=== PATIENT | female | born 1985 | race African-American/Black ===

== ENCOUNTER 2024-01-30 18:33 | Emergency (ER) | payer OTHER, SELFPAY ==
[2024-01-30 18:49] VITALS: BP 104/49; PULSE 84; RESP 18; TEMP 36.7; O2SAT 100
[2024-01-30 19:00] VITALS: BP 129/60; PULSE 84
[2024-01-30 19:02] VITALS: BP 97/75; PULSE 79
--- NOTE | 2024-01-30 19:02 | ED.GENADULT ---
HPI - General Adult General Chief complaint: Nausea/Vomiting/Diarrhea Stated complaint: diarrhea/nausea/congestion Time Seen by Provider: 01/30/24 19:00 Source: patient, RN notes reviewed and old records reviewed Mode of arrival: ambulatory Limitations: no limitations History of Present Illness HPI narrative: 38 year old female who presents to [facility] care accompanied by significant other with complaints of 3 day history of nausea, vomiting and some diarrhea. Patient reports that she has been having about 5 episodes daily. She also reports that she has had head congestion body and back ache and also headache, has felt dizzy today. Patient reports that she has been voiding as usual and has been drinking fluids. Patient reports concern if dizziness could be from Prazosin that she took last night for night green, uses this on occasion.Patient reports that she has taken Ibuprofen and Tylenol for her discomfort, denies any abdominal pain MD complaint: nausea vomiting and diarrhea, dizziness Onset (ago): day(s) (3) Severity scale (1-10): 4 Quality: aching Treatments prior to arrival: NSAID and other (Tylenol) Related Data Home Medications Medication Instructions Recorded Confirmed albuterol sulfate 90 mcg/actuation inhalation 01/30/24 aerosol inhaler bupropion HCl 150 mg 24 hr tablet, 150 mg PO DAILY 01/30/24 01/30/24 extended release hydroxyzine HCl 50 mg tablet 50 mg PO TID Anxiety 01/30/24 01/30/24 metoprolol succinate 50 mg 50 mg PO 01/30/24 tablet,extended release 24 hr prazosin 2 mg capsule 2 mg PO BID PRN Anxiety 01/30/24 01/30/24 Allergies Allergy/AdvReac Type Severity Reaction Status Date / Time No Known Allergies Allergy Unverified 01/04/19 14:51 Review of Systems Review of Systems: CONSTITUTIONAL: Denies fever, chills, or sweats. EYES: Denies visual changes, redness, or discharge. ENT: report rhinorrhea,head congestion,no sore throat, or otalgia. CARDIOVASCULAR: Denies chest pain, palpitations, or edema. RESPIRATORY: Denies cough or dyspnea. GASTROINTESTINAL: Denies abdominal pain,positive for nausea, vomiting, or diarrhea. GENITOURINARY: Denies dysuria or hematuria. SKIN: Denies rash or itching. MUSCULOSKELETAL: Reports back pain, generalized body aches, or myalgia. NEUROLOGIC: Reports headache, no numbness, or weakness.states some dizziness. PSYCHIATRIC:Reports history of anxiety or depression. All systems reviewed & are unremarkable except as noted in HPI and below PMFSH Past Medical History Medical History (Updated 02/01/24 @ 15:38 by Audelia Osullivan NP) Anxiety and depression Asthma Hypertension Nightmares Surgical History Surgical History (Updated 02/01/24 @ 15:33 by Audelia Osullivan NP) Previous section x4 Social History Social History (Updated 02/01/24 @ 15:38 by Audelia Osullivan NP) Smoking packs per day: 0.5 Smoking cigarettes per day: 10.0 Years smoked: 20 Smoking pack-years: 10.00 Smoking status: Former smoker Tobacco type: cigarettes Additional smoking assessment comments: quit 8 months ago Alcohol intake: current Alcohol use details: rare social Substance use type: does not use Living arrangements: with family Gender identity (if verbalized by the patient): Female Comments At time of signature, agree with nursing past medical, surgical, social and family history. There is no relevant family history pertinent to the presenting complaint Exam Narrative: GENERAL: Well-appearing, well-nourished, and in no acute distress. HEAD: Normocephalic, atraumatic. EYES: PERRLA and EOMI. ENT: Nares clear, no rhinorrhea or epistaxis. Mucous membranes moist.TM's normal, throat pink with no swelling NECK: Supple. no lymphadenopathy CHEST: Clear to auscultation. No respiratory distress. HEART: Regular rate and rhythm. No murmur heard. Normal peripheral pulses. ABDOMEN: Soft, nontender, nondistended, normal active bowel sounds episodes of
[2024-01-30 19:04] VITALS: BP 127/73; PULSE 80
== END 2024-01-30 19:45 | disposition home or self-care (01) ==
PROVIDERS: Emergency Provider Registered Nurse
DX: K52.9 Noninfective gastroenteritis and colitis, unspecified (principal); R42 Dizziness and giddiness; E86.0 Dehydration; Z20.822 Contact with and (suspected) exposure to COVID-19; Z87.891 Personal history of nicotine dependence; J45.909 Unspecified asthma, uncomplicated; I10 Essential (primary) hypertension; F41.9 Anxiety disorder, unspecified; F32.A Depression, unspecified
CPT/HCPCS: 87426; 99203; G0463

== ENCOUNTER 2024-07-28 17:13 | Emergency (ER) | payer OTHER, SELFPAY ==
--- OUTSIDE RECORDS SUMMARY | 2024-07-28 17:17 | XMS_ITS | Encounter Summary ---
Author Organization [facility] Address [address] [place] [address] Phone Care Team Providers Care [employer] Draftsman Name Role Phone Mackenzie Reyna PAC Unavailable [phone] Cosmo Jimenez PAC Primary Care Provider [phone] Reason for Visit * Reason Comments Medication Refill Encounter Details Date Type Department Care Team (Late st Contact Info) Description 11/12/2023 Refill [facility] - [facility] - [place] [address] [place] [address] Cosmo Jimenez PAC [address] [place] [address] Medication Refill Social History Tobacco Use Types Packs/Day Years Used Date Smoking Tobacco: Every Day Cigarettes 0.5 23.9 Started: 09/10/2000 Smokeless Tobacco: Never Alcohol Use Standard Drinks/Week Comments Yes 1 (1 standard drink = 0.6 oz pur e alcohol) socially [facility] Utilities Answer Date Recorded In the past 12 months has [employer] electric, gas, oil, or water company threatened to shut off services in your home? Patient declined 08/16/2023 Social Connection and Isolation Panel [NHANES] A nswer Date Recorded In a typical week, how many times do you talk on the phone with family, friends, or neighbors? Patient declined 08/16/2023 How often do you get togethe r with friends or relatives? Patient declined 08/16/2023 How often do you attend pentecostal or religion serv ices? Patient declined 08/16/2023 Active Member of Clubs or Organizations Not on f ile 08/16/2023 How often do you attend meet ings of the clubs or organizations you belong to? Patient declined 08/16/2023 Are you , , di vorced, , never , or living with a partner? Patient declined 08/16/2023 AUDIT-C Answer Date Recorded Q1: How often do you have a drink containing alc ohol? 2-4 times a month 08/16/2023 Q2: How many drinks containi ng alcohol do you have on a typical day when you are drinking? 1 or 2 08/16/2023 Q3: How often do you have si x or more drinks on one occasion? Never 08/16/2023 Overall Financial Resource Strain (CARDIA) Answe r Date Recorded How hard is it for you to pa y for the very basics like food, housing, medical care, and heating? Somewhat hard 08/16/2023 PHQ-2 Answer Date Recorded Total Score - Questions 1-9 2 08/17 [facility] - Occupational Stress Questionnaire Answer Date Recorded Do you feel stress - tense, restless, nervous, or anxious, or unable to sleep at night because your mind is troubled all the time - these days? Patient declined 08/16/2023 Exercise Vital Sign Answer Date Recorde d On average, how many days pe r week do you engage in moderate to strenuous exercise (like a brisk walk)? 2 days 08/16/2023 On average, how many minutes do you engage in exercise at this level? 20 min 08/16/2023 Hunger Vital Sign Answer Date Recorded Within the past 12 months, y ou worried that your food would run out before you got the money to buy more. Patient declined Within the past 12 months, t he food you bought just didn't last and you didn't have money to get more. Patient declined PRAPARE - Transportation Answer Date Re corded In the past 12 months, has l ack of transportation kept you from medical appointments or from getting medications? Patient declined 08/16/2023 In the past 12 months, has l ack of transportation kept you from meetings, work, or from getting things needed for daily living? Patient declined 08/16/2023 Housing Stability Vital Sign Answer William e Recorded In the last 12 months, was t here a time when you were not able to pay the mortgage or rent on time? Patient declined 08/16/19 24 In the last 12 months, how many places have you lived? 1 08/16/2023 In the last 12 months, was t here a time when you did not have a steady place to sleep or slept in a jail (including now)? No 08/16/2023 Comments No Sex and Gender Information Value Date Recorded Sex Assigned at Not on file Legal Sex Female 9:55 PM CDT Gender Identity Not on file Sexual Orientation Not on file documented as of this encounter Miscellaneous Notes * Telephone Encounter - Cosmo Jimenez PAC - 11/13/2023 7:41 PM CDT Refill approved. * Telephone Encounter - Marco Ta RN - 11/13/2023 9:47 AM CDT Medication failed the protocol, provider to review and approve the medication order if appropriate. Requested Prescriptions Pending Prescriptions Disp Refills buPROPion (WELLBUTRIN) 150 MG XL tablet [Pharmacy Med Name: BUPROPION HCL XL 150 MG TABLET] 90 Tablet 0 Sig: TAKE 1 TABLET BY MOUTH EVERY DAY IN THE MORNING Bupropion (6 Month Refill Only) Protocol Failed - 11/12/2023 1:01 AM Failed - Has an encounter in the past 6 months with a depression or anxiety visit diagnosis Failed - Patient has established therapy with Bupropion for at least 6 months Passed - No test in the past 12 months or most recent test was negative Passed - No active on record Passed - Visit with relevant provider in past 6 months or upcoming 90 days Recent Visits Date Type Provider Dept 08/16/23 Office Visit Cosmo Jimenez PAC [facility] Showing recent visits within past 182 days and meeting all other requirements Future Appointments No visits were found meeting these conditions. Showing future appointments within next 90 days and meeting all other requirements documented in this encounter Plan of Treatment Upcoming Encounters Date Type Department Care Team (Late st Contact Info) Description 08/08/2024 8:10 AM HUMANITIES TEACHER Lab [facility] - [place] [address] [place] [id number] [facility] 08/15/2024 10:30 AM HUMANITIES TEACHER Office Visit [facility] [place] [address] [place] [address] Cosmo Jimenez PAC [address] [place] [address] documented as of this encounter Visit Diagnoses Not on filedocumented in this encounter Additional Health Concerns Infection Onset Date Last Indicated Resolved Time COVID - 19 05/22/2024 05/22/2024 05/22/2024 3:34 PM HUMANITIES TEACHER Assessment Noted Time PHQ-9 Depression Total Score: 2 09/11/19 21 11:00 AM CDT documented as of this encounter Care Teams [employer]sman Relationship Specialty Start Date End Date Cosmo Jimenez PAC [address] [facility] [place] [place] [id number] PCP - General Physician Volunteer Firefighter 04/04/23 Mackenzie Reyna PAC [address] [place] [address] Physician Volunteer Firefighter Physician Volunteer Firefighter 09/08/20 documented as of this encounter
--- OUTSIDE RECORDS SUMMARY | 2024-07-28 17:17 | XMS_ITS | CONTINUITY OF CARE DOCUMENT ---
Author Name beto pérez Address Unknown Organization [facility] Address [address] [place] [address] [address] [place] [address] Phone [phone] Care Team Providers Care Laboratory Chief Name Role Phone beto pérez Unavailable Unavailable INSURANCE PROVIDERS Payer name Policy type / Coverage type [employer] Medicaid 1 [id number]
--- OUTSIDE RECORDS SUMMARY | 2024-07-28 17:17 | XMS_ITS | Clinical Summary ---
Author Organization [facility] Address [address] [place] [address] Phone Care Team Providers Care Geology Technician Name Role Phone Mackenzie Reyna PAC Unavailable [phone] Cosmo Jimenez PAC Primary Care Provider [phone] Allergies Active Allergy Reactions Criticality Noted Date Comments Oxycodone-Acetaminophen Itching,Swelling 2020 Medications Blood Pressure Kit 1 Units by Does not apply route daily. 1 Each 05/19/20 22 Active fish oil-omega-3 fatty acids 1000 MG Capsule Take 1,000 mg by mouth daily. Active hydrOXYzine (ATARAX) 50 MG Tablet TAKE 1 TABLET BY MOUTH THREE TIMES A DAY NEEDED FOR ANXIETY OR SLEEP 90 Tablet 1 04/25/20 23 Active Additional Information Patient not taking.Reported on 07/28/2024 Phentermine HCl 37.5 MG TabletIndications :Obesity, Class III, BMI 40-49.9 (morbid obesity) ([facility]) Take 1 Tablet by mouth every morning (before breakfast). 30 Tablet 07/03/19 24 Active Additional Information Patient not taking.Reported on 07/28/2024 Cholecalciferol (Vitamin D3) 1.25 MG (31394 UT) TabletIndications :Vitamin D deficiency Take 1 Tablet by mouth once a week. 12 Tablet 08/17/19 24 Active Additional Information Patient not taking.Reported on 07/28/2024 buPROPion (WELLBUTRIN) 150 MG XL tablet TAKE 1 TABLET BY MOUTH EVERY DAY IN THE MORNING 90 Tablet 05/28/20 24 Active Additional Information Patient not taking.Reported on 07/28/2024 metoprolol Succinate (TOPROL-XL) 50 MG TABLET SR 24 HRIndications:Ess ential hypertension Take 1 Tablet by mouth daily. 90 Tablet 1 04/02/20 Active albuterol 108 (90 Base) MCG/ACT Aerosol SolutionIndicatio ns:Wheezing TAKE 2 PUFFS BY INHALATION EVERY 4 HOURS NEEDED FOR WHEEZING OR COUGH. 18 g 1 04/14/20 Active traMADol (ULTRAM) 50 MG TabletIndications :Cervical radiculopathy Take 1-2 Tablets by mouth every 6 hours as needed for Moderate or more severe pain. 20 Tablet 05/22/20 Active Additional Information Patient not taking.Reported on 07/28/2024 naloxone HCl (Narcan) 4 MG/0.1ML Liquid 1 Castaner by Nasal route as needed for Opioid Reversal. Administer in one nostril for symptoms of overdose (severe sleepiness, breathing problems, not responsive). Call 911. May repeat 1 spray in alternate nostril in 2-3 minutes if needed. 2 Each 06/05/20 Active Additional Information Patient not taking.Reported on 07/28/2024 cyclobenzaprine (FLEXERIL) 5 MG TabletIndications :Cervical radiculopathy Take 1 Tablet by mouth 3 times daily as needed for Muscle spasms for up to 14 days. 42 Tablet 06/27/19 25 025 Active Problems Problem Noted Date Diagnosed Date Intentional drug overdose 04/13/2023 ETOH abuse 04/13/2023 Cocaine abuse 04/13/2023 Tobacco abuse 04/13/2023 Anxiety 04/13/2023 Depression 04/13/2023 Schizophrenia 04/13/2023 Bipolar 1 disorder 04/13/2023 Hypertension 04/13/2023 Colitis 04/13/2023 Encounters Date Type Department Care Team Description 07/28/2024 Nurse Triage [facility] [address] [place] [address] Cosmo Jimenez, PAC Cough; Shortness of Breath 07/02/2024 Telephone [facility] at [facility] [address], [address] [place] [address] John Barnhart, Z OS MAINFRAME SYSTEMS PROGRAMMER No Show (2nd no show) 06/30/2024 Telephone [facility] [address] [place] [address] John Barnhart, Z OS MAINFRAME SYSTEMS PROGRAMMER 06/27/2024 2:00 PM DIGITAL MARKETING CONSULTANT Physical Therapy [facility]hab at [facility] [address], [address] [place] [address] Mackenzie Lilly APRN, MAIN ENTREE COOK AND CASHIER Marilyn Tabor, PT Abnormal posture (Primary Dx); Cervical radiculopathy; Weakness; Acute pain of right shoulder Discharge Disposition: Discharged to home or Selfcare 06/27/2024 Nurse Triage [facility] [address] [address] [place] [address] Cosmo Jimenez, PAC Back Pain 06/27/2024 Plan of Care Documentation [facility] [address] [facility], [address] [place] [address] 06/27/2024 Travel 06/15/2024 Results Follow-Up [facility] [place] [address] [place] [address] Cosmo Jimenez, PAC 06/13/2024 3:20 PM DIGITAL MARKETING CONSULTANT Lab [facility] [place] [address] Obesity, Class III, BMI 40-49.9 (morbid obesity) ([facility]) Discharge Disposition: Discharged to home or Selfcare 06/13/2024 Travel 06/05/2024 4:00 PM DIGITAL MARKETING CONSULTANT Office Visit [facility] [address] [place] [address] Mackenzie Lilly, RECYCLING MANAGER, MAIN E[employer]REE [employer]OOK [employer] CASHIER Cervical radiculopathy (Primary Dx) Discharge Disposition: Discharged to home or Selfcare 06/05/2024 Travel 05/22/2024 2:47 PM DIGITAL MARKETING CONSULTANT - 05/22/2024 4:43 PM DIGITAL MARKETING CONSULTANT Emergency [facility] Emergency [address] [place] [address] Jesus Meier MD Cervical radiculopathy Discharge Disposition: Discharged to home or Selfcare 05/22/2024 Travel from Last 3 Months Immunizations Immunization Administration Dates Next Due Influenza Vaccine, Quadrivalent, PF 04/04/2023,1 Family History Medical History Relation Name Comments Heart Attack Father Hypertension Father Osteoarthritis Father Rheumatoid Arthritis Father Thyroid Disease Father Asthma Mother Congestive Heart Failure Mother Diabetes Mother Heart Attack Mother High Cholesterol Mother Hypertension Mother Cancer Sister Hodkins Relation Name Status Comments Father Mother Sister Social History Tobacco Use Types Packs/Day Years Used Date Smoking Tobacco: Former Cigarettes 0.5 23.9 S tarted: 09/10/2000 Smokeless Tobacco: Never Alcohol Use Standard Drinks/Week Comments Yes 1 (1 standard drink = 0.6 oz pur e alcohol) True Styleities Answer Date Recorded In the past 12 months has [employer], gas, oil, or water [employer] threatened to shut off services in your home? Patient declined 08/16/2023 Social Connection and Isolation Panel [NHANES] A nswer Date Recorded In a typical week, how many times do you talk on the phone with family, friends, or neighbors? Patient declined 08/16/2023 How often do you get togethe r with friends or relatives? Patient declined 08/16/2023 How often do you attend roman catholic or baptist serv ices? Patient declined 08/16/2023 Active Member [...] Total Score - Questions 1-9 2 08/17 [facility] Occupational Stress Questionnaire Answer [...] place to sleep or slept in a senior care (including now)? No 08/16/2023 Comments No Sex and Gender Information Value Date Recorded Sex Assigned at Not on file Legal Sex Female 9:55 PM CDT Gender Identity Not on file Sexual Orientation Not on file Last Filed Vital Signs Vital Sign Reading Time Taken Comments Blood Pressure 130/80 06/05/2024 4:01 PM DIGITAL MARKETING CONSULTANT Pulse 97 06/05/2024 4:01 PM DIGITAL MARKETING CONSULTANT Temperature 37 C (98.6 F) 06/05/2024 4:01 PM DIGITAL MARKETING CONSULTANT Respiratory Rate 16 06/05/2024 4:01 PM DIGITAL MARKETING CONSULTANT Oxygen Saturation 100% 06/05/2024 4:01 PM DIGITAL MARKETING CONSULTANT Inhaled Oxygen Concentration - - Weight 111.6 kg (246 lb) 06/05/2024 4:01 PM DIGITAL MARKETING CONSULTANT Height 149.9 cm (4' 11 ) 06/05/2024 4:01 PM DIGITAL MARKETING CONSULTANT Body Mass Index 49.69 06/05/2024 4:01 PM DIGITAL MARKETING CONSULTANT Plan of Treatment Upcoming Encounters Date Type Department Care Team (Late st Contact Info) Description 08/08/2024 8:10 AM DIGITAL MARKETING CONSULTANT Lab [facility] [address] [place] [address] [facility] 08/15/2024 10:30 AM DIGITAL MARKETING CONSULTANT Office Visit [facility] [place] [address] [place] [address] Cosmo Jimenez PAC [address] [place] [address] Health Maintenance Due Date Last Done Comments Hepatitis C Virus (HCV) Screening 1986 TdaP Immunization 1986 Hepatitis B Immunization (1 of 3 - 19+ 3-dose series) 2005 Pneumococcal Immunization Combined (1 of 2 - PCV) 2005 HPV/Cotest 2016 Influenza Immunization (#1) 02/17/202403/18, 04/05/2022 Cervical Cancer Screening (CCS) 05/17/2025 Pap Smear 05/17/2025 05/17/2022 Respiratory Syncytial Virus (RSV) Immunization (Adult) (1 - 1-dose 75+ series) 2061 SARS-COV-2 Immunization Completed 02/21/2024 Meningococcal Immunization (ACWY) Aged Out No longer eligible b ased on patient's age to complete this topic Rotavirus Immunization Aged Out No lo nger eligible based on patient's age to complete this topic Procedures Procedure Name Priority Date/Time Associated Diagnosis Comments HEMOGLOBIN A1C W/ ESTIMATED GLUCOSE Routine 06/13/2024 3:28 PM DIGITAL MARKETING CONSULTANT Obesity, Class III, BMI 40-49.9 (morbid obesity) (HCC) XR CERVICAL SPINE LIMITED 2 OR 3 VIEWS (3V OR LESS) STAT 05/22/2024 3:27 PM DIGITAL MARKETING CONSULTANT XR CHEST 2 VIEWS STAT 05/22/2024 3:23 PM DIGITAL MARKETING CONSULTANT RSV,SARS-COV-2,INFL UENZA A&B BY PCR STAT 05/22/2024 2:21 PM DIGITAL MARKETING CONSULTANT EKG 12 LEAD STAT 05/22/2024 2:17 PM DIGITAL MARKETING CONSULTANT EKG SCAN 05/22/2024 12:00 AM DIGITAL MARKETING CONSULTANT PATHOLOGY CYTOLOGY RX SPECIALIST Routine 05/17/2022 11:21 AM DIGITAL MARKETING CONSULTANT Well woman exam with routine gynecological exam from Last 3 Months or Most Recently Relevant to Health Maintenance Results * HEMOGLOBIN A1C W/ ESTIMATED GLUCOSE (06/13/2024 3:28 PM DIGITAL MARKETING CONSULTANT) HGB-A1C 5.5 4.0 - 6.0 % 06/13/2024 5:49 PM DIGITAL MARKETING CONSULTANT [facility] Est Average Glucose 111.2 mg/dL 06/13/2024 5:49 PM DIGITAL MARKETING CONSULTANT [facility] Blood Venipuncture / Unknown 06/13/2024 3:28 PM DIGITAL MARKETING CONSULTANT 06/13/2024 3:28 PM DIGITAL MARKETING CONSULTANT Narrative [facility] - 06/13/2024 5:49 PM DIGITAL MARKETING CONSULTANT HEMOGLOBIN A1C: DIABETIC PATIENTS: WELL-CONTROLLED: 6.2 - 7.0 INTERMEDIATE WELL-CONTROLLED: 7.0 - 9.0 POORLY-CONTROLLED: >9.0 us Cosmo Jimenez PAC CHEMISTRY ORDERABLES Final R esult [facility] [address] [place] [address] * XR CERVICAL SPINE LIMITED 2 OR 3 VIEWS (3V OR LESS) (05/22/2024 3:27 PM DIGITAL MARKETING CONSULTANT) Anatomical Region Laterality Modality Spine, C-spine N/A Digital Radiogra phy 05/22/2024 4:23 PM DIGITAL MARKETING CONSULTANT Impressions 05/22/2024 4:26 PM DIGITAL MARKETING CONSULTANT IMPRESSION: 1. No acute findings of the cervical spine. 2. Moderate degenerative disc disease at C5-C6. Narrative 05/22/2024 4:26 PM DIGITAL MARKETING CONSULTANT EXAM DESCRIPTION: XR CERVICAL SPINE LIMITED 2 OR 3 VIEWS (3V OR LESS) REASON FOR STUDY: Pt c/o RT neck pain that radiates down RT arm x 5 days. no injury or hx of surgery. hx of HTN TECHNIQUE: 4 radiographic view(s) of the cervical spine. COMPARISON: None FINDINGS: ALIGNMENT: Anatomic. VERTEBRAE: Vertebral bodies of normal height. DISCS: Moderate disc height loss at C5-C6. SOFT TISSUES: Within normal limits. THIS IS AN ELECTRONICALLY VERIFIED FINAL REPORT 05/22/2024 4:23 PM - Electronically signed by Michael Coe M.D. KR: LUCIO Report ID: [id number] Reading Location: [place] [address] Procedure Note Michael Coe MD - 05/22/2024 EXAM DESCRIPTION: XR CERVICAL SPINE LIMITED 2 OR 3 VIEWS (3V OR LESS) REASON FOR STUDY: Pt c/o RT neck pain that radiates down RT arm x 5 days. no injury or hx of surgery. hx of HTN TECHNIQUE: 4 radiographic view(s) of the cervical spine. COMPARISON: None FINDINGS: ALIGNMENT: Anatomic. VERTEBRAE: Vertebral bodies of normal height. DISCS: Moderate disc height loss at C5-C6. SOFT TISSUES: Within normal limits. THIS IS AN ELECTRONICALLY VERIFIED FINAL REPORT 05/22/2024 4:23 PM - Electronically signed by Michael Coe M.D. KR: LUCIO Report ID: [id number] Reading Location: [id number] IMPRESSION: 1. No acute findings of the cervical spine. 2. Moderate degenerative disc disease at C5-C6. Jesus Meier MD IMG DIAGNOSTIC ORDERABLES Final Result * XR CHEST 2 VIEWS (05/22/2024 3:23 PM DIGITAL MARKETING CONSULTANT) Anatomical Region Laterality Modality Chest N/A Digital Radiogra phy 05/22/2024 4:22 PM DIGITAL MARKETING CONSULTANT Impressions 05/22/2024 4:24 PM DIGITAL MARKETING CONSULTANT IMPRESSION: No acute cardiopulmonary abnormality. Narrative 05/22/2024 4:24 PM DIGITAL MARKETING CONSULTANT EXAM DESCRIPTION: XR CHEST 2 VIEWS REASON FOR STUDY: Pt c/o RT neck pain that radiates down RT arm x 5 days. pt also reports cough x 2 day and small amount blood this morning. no injury or hx of surgery. hx of HTN TECHNIQUE: 2 radiographic view(s) of the chest. COMPARISON: 04/09/2023 FINDINGS: LUNGS: No focal opacity, pleural effusion, or pneumothorax. HEART/MEDIASTINUM: Cardiac silhouette normal in size. Mediastinal and hilar contours appear normal. LINES/TUBES: None. BONES: No acute osseous abnormality. THIS IS AN ELECTRONICALLY VERIFIED FINAL REPORT 05/22/2024 4:22 PM - Electronically signed by Michael Coe M.D. KR: LUCIO Report ID: [id number] Reading Location: [id number] Procedure Note Michael Coe MD - 05/22/2024 EXAM DESCRIPTION: XR CHEST 2 VIEWS REASON FOR STUDY: Pt c/o RT neck pain that radiates down RT arm x 5 days. pt also reports cough x 2 day and small amount blood this morning. no injury or hx of surgery. hx of HTN TECHNIQUE: 2 radiographic view(s) of the chest. COMPARISON: 04/09/2023 FINDINGS: LUNGS: No focal opacity, pleural effusion, or pneumothorax. HEART/MEDIASTINUM: Cardiac silhouette normal in size. Mediastinal and hilar contours appear normal. LINES/TUBES: None. BONES: No acute osseous abnormality. THIS IS AN ELECTRONICALLY VERIFIED FINAL REPORT 05/22/2024 4:22 PM - Electronically signed by Michael Coe M.D. KR: KR Report ID: [id number] Reading Location: [id number] IMPRESSION: No acute cardiopulmonary abnormality. us Jesus Meier MD IMG DIAGNOSTIC ORDERABLES Final Result * RSV,SARS-COV-2,INFLUENZA A&B BY PCR (05/22/2024 2:21 PM DIGITAL MARKETING CONSULTANT) FLU A Negative Negative, Error 05/22/2024 3:34 PM DIGITAL MARKETING CONSULTANT [facility] FLU B Negative Negative 05/22/2024 3:34 PM DIGITAL MARKETING CONSULTANT [facility] RESP SYNC VIRUS Negative Negative 3:34 PM DIGITAL MARKETING CONSULTANT [facility] SARSCOV2 NOT DETECTED (Reference Range for this test is Not Detected) 05/22/2024 3:34 PM DIGITAL MARKETING CONSULTANT [facility] Comment:This test was perfor med by a Reverse Privacy Director PCR Method. Swab NASOPHARYNGEAL SWAB / Unknown Non-Phlebotomy Collection / Unknown 05/22/2024 2:21 PM DIGITAL MARKETING CONSULTANT 05/22/2024 2:55 PM DIGITAL MARKETING CONSULTANT Narrative [facility] - 05/22/2024 3:34 PM DIGITAL MARKETING CONSULTANT This test has not been FDA cleared or approved; the test has been authorized by FDA under an Emergency Use Authorization (EUA) for use by laboratories certified under the CLIA that meet the requirements to perform moderate, high or waived complexity tests. Authorized Fact Sheets about this test for providers and patients are available at: https://www.fda.gov/medical-devices/rotdhijfn-fjuvjxjzmn-kprnstr-devices/emergen -us e-authorizations John Dockery [facility] MICROBIOLOGY - GENERA L ORDERABLES Final Result [facility] [address] [place] [address] * EKG 12 LEAD (05/22/2024 2:17 PM DIGITAL MARKETING CONSULTANT) Ventricular Rate 87 BPM EXTERNAL EKG Atrial Rate 87 BPM EXTERNAL EKG P-R Interval 122 ms EXTERNAL EKG QRS Duration 82 ms EXTERNAL EKG Q-T Duration 396 ms EXTERNAL EKG QTC CALCULATION 476 ms EXTERNAL EKG P [place] 63 degrees EXTERNAL EKG R [place] 35 degrees EXTERNAL EKG T [place] 28 degrees EXTERNAL EKG 05/22/2024 2:17 PM DIGITAL MARKETING CONSULTANT Impressions EXTERNAL EKG - 05/26/2024 10:23 PM DIGITAL MARKETING CONSULTANT Normal sinus rhythm Normal ECG When compared with ECG of 04/13/23 No significant change was found Confirmed by Alexandre Winter ([id number]) on 05/26/2024 10:23:38 PM Narrative Procedure Note Alexandre Winter MD PhD - 05/26/2024 IMPRESSION: Normal sinus rhythm Normal ECG When compared with ECG of 04/13/23 No significant change was found Confirmed by Alexandre Winter ([id number]) on 05/26/2024 10:23:38 PM us John Dockery PAC IMG ECG ORDERABLES Fi nal Result Performing Organization Address [facility]/ZIP Co de Phone Number EXTERNAL EKG * EKG SCAN (05/22/2024 12:00 AM DIGITAL MARKETING CONSULTANT) 05/22/2024 us Provider Scan IMG ECG ORDERABLES Final Result RESULTING AGENCY * PATHOLOGY CYTOLOGY RX SPECIALIST (05/17/2022 11:21 AM DIGITAL MARKETING CONSULTANT) SPECIMEN ADEQUACY Satisfactory for evaluation. Endocervical/transf ormation zone component is absent. 05/23/2022 10:05 AM DIGITAL MARKETING CONSULTANT [facility] DESCRIPTIVE DIAGNOSIS NEGATIVE FOR INTRAEPITHELIAL LESIONS OR MALIGNANCY. 05/23/2022 10:05 AM [facility] Reflex if ASCUS? Yes 05/23/2022 10:05 AM [facility] Automated Examination This sample was not evaluated by the automated imaging and review system due to technical and/or biologic factor(s). The case was screened, reviewed, and finalized by a letter carrier and/or pathologist. 05/23/2022 10:05 AM [facility] Disclaimer The PAP smear is a screening test designed to detect cancerous or precancerous cells of the uterine cervix. It is one of the best means available for detection of cervical cancer but still carries an inherent false-negative rate. The consequences of a false-negative PAP result can be minimized by adhering to current screening guidelines. The following are general guidelines recommended by the ACS, ASCP, ASCCP, and ACOG: PAP testing is recommended every three years for women 21-29, Co-Testing , a PAP test in conjunction with an HPV (Human Papillomavirus) test for women ages 30-65, and no PAP or HPV testing for women under the age of 21 or older than 65 unless clinically indicated. 05/23/2022 10:05 AM [facility] Other SPECIMEN FROM CERVIX OR VAGINA / Unknown Non-Phlebotomy Collection / Unknown 05/17/2022 11:21 AM DIGITAL MARKETING CONSULTANT 05/17/2022 11:21 AM DIGITAL MARKETING CONSULTANT Jolie Ross APRN, CNP PATHOLOGY/CYTOLOGY LUCRECIA ALCANTARA Final Result [facility] [address] [place] [address], [place] from Last 3 Months or Most Recently Relevant to Health Maintenance Insurance MEDICAID [facility]ETNA [facility] Advance Directives * Full Code (Latest Code Status on File) Date Activated Date Inactivated Comments 04/13/2023 8:52 PM 04/14/2023 4:35 PM CPR-Full T reatment: FULL ARREST: Attempt Resuscitation/CPR wit intubation and mechanical ventilation. PRE-ARREST: Use entire range of life support measures to stabilize the patient. Care Teams Geology Technician Relationship Specialty Start Date End Date Cosmo Jimenez, [facility] [address] [place] [address] PCP - General Physician Lcac Operator 04/04/23 Mackenzie Reyna, [facility] [address] [place] [address] Physician Lcac Operator Physician Lcac Operator 09/08/20
--- OUTSIDE RECORDS SUMMARY | 2024-07-28 17:17 | XMS_ITS | Encounter Summary ---
Author Organization [facility] Address [address] [place] [address] Phone Care Team Providers Care Paper Steamer Name Role Phone Mackenzie Reyna PAC Unavailable [phone] Jolie Ross APRN, DIRECTOR MARKETING Primary Care Provider Cosmo Jimenez PAC Primary Care Provider [phone] Reason for Visit * Reason Comments Medication Refill Encounter Details Date Type Department Care Team (Late st Contact Info) Description 01/14/2023 Refill [facility] [place] [address] [place] [address] Jolie Ross, MIKE, DIRECTOR MARKETING [address] [place] [address] Medication Refill Social History Tobacco Use Types Packs/Day Years Used Date Smoking Tobacco: Every Day Cigarettes 0.5 23.9 Started: 09/10/2000 Smokeless Tobacco: Never Alcohol Use Standard Drinks/Week Comments Yes 1 (1 standard drink = 0.6 oz pur e alcohol) socially PHQ-2 Answer Date Recorded Total Score - Questions 1-9 2 08/17 Comments No Sex and Gender Information Value Date Recorded Sex Assigned at Not on file Legal Sex Female 9:55 PM CDT Gender Identity Not on file Sexual Orientation Not on file documented as of this encounter Miscellaneous Notes * Telephone Encounter - Audelia Cedeno RN - 01/16/2023 10:14 AM CDT Ruby Ribbont message sent to patient. * Telephone Encounter - Tawny Pritchett RN - 01/15/2023 9:55 AM CDT PCP no longer within [facility]. Attempted to call pt to schedule a transfer of care appt, no answer, unable to LVM for pt to call back. documented in this encounter Plan of Treatment Upcoming Encounters Date Type Department Care Team (Late st Contact Info) Description 08/08/2024 8:10 AM BLIND AIDE Lab [facility] [place] [address] [place] [address] [facility] 08/15/2024 10:30 AM BLIND AIDE Office Visit [facility] [place] [address] [place] [address] Cosmo Jimenez PAC [address] [place] [address] documented as of this encounter Visit Diagnoses Diagnosis Essential hypertension Unspecified essential hypertension documented in this encounter Additional Health Concerns Infection Onset Date Last Indicated Resolved Time COVID - 19 05/22/2024 05/22/2024 05/22/2024 3:34 PM BLIND AIDE Assessment Noted Time PHQ-9 Depression Total Score: 2 09/11/19 21 11:00 AM CDT documented as of this encounter Care Teams Paper Steamer Relationship Specialty Start Date End Date Jolie Ross, ROTOR WINDER, DIRECTOR MARKETING [address] [place] [address] PCP - General Advanced Practice Nurse 04/05/22 3 Cosmo Jimenez, PAC [address] [place] [address] PCP - General Physician It Network Administrator 04/04/23 Mackenzie Reyna, [facility] [address] [place] [address] Physician It Network Administrator Physician It Network Administrator 09/08/20 documented as of this encounter
--- OUTSIDE RECORDS SUMMARY | 2024-07-28 17:17 | XMS_ITS | CONTINUITY OF CARE DOCUMENT ---
Author Name beto pérez Address Unknown Organization [facility] Address [address] [place] [address] [address] [place] [address] Phone [phone] Care Team Providers Care Front Desk Auxiliary Name Role Phone beto pérez Unavailable Unavailable INSURANCE PROVIDERS Payer name Policy type / Coverage type [place] red democrat [employer] Medicaid 1 [id number]
--- OUTSIDE RECORDS SUMMARY | 2024-07-28 17:17 | XMS_ITS | Encounter Summary ---
Author Organization [facility] Address [address] [place] [address] Phone Care Team Providers Care Cigar Head Stringer Name Role Phone Mackenzie Reyna PAC Unavailable [phone] Cosmo Jimenez PAC Primary Care Provider [phone] Reason for Visit * Reason Comments Medication Refill Encounter Details Date Type Department Care Team (Late st Contact Info) Description 03/19/2023 Telephone [facility] - Primary Care - [place] [address] [place] [address] Faith Mariscal MD [address] [place] [address] Medication Refill Social History Tobacco [...] encounter Miscellaneous Notes * Telephone Encounter - Leatha Jurado, RN - 03/27/2023 2:31 PM CDT Returned call Parth. This RN advised that the refill was declined because she has no showed multiple appointments with this office. Scheduled KASIA. This RN advised we can do a 30-day supply but she needs to keep her appointment to get any further refills. Parth verbalized understanding. See refill encounter 03/27/23. * Telephone Encounter - Irene Park MA - 03/27/2023 2:21 PM CDT Message left on medication refill voice mail: Patient requesting a return call in regards to the denial of Inhaler and Metoprolol Succinate 50 mg tabs . Please call patient @[phone] * Telephone Encounter - Leatha Jurado RN - 03/20/2023 8:53 AM CDT No showed KASIA appointment. Medication refused. documented in this encounter Plan of Treatment Upcoming Encounters Date Type Department Care Team (Late st Contact Info) Description 08/08/2024 8:10 AM LEAD PRINTER Lab [facility] - [place] [address] [place] [id number] [facility] 08/15/2024 10:30 AM LEAD PRINTER Office Visit [facility] Primary [facility] [place] [address] [place] [phone] Cosmo Jimenez, YULIYA [address] [place] [address] documented as of this encounter Visit Diagnoses Diagnosis Essential hypertension Unspecified essential hypertension documented in this encounter Additional Health Concerns Infection Onset Date Last Indicated Resolved Time COVID - 19 05/22/2024 05/22/2024 05/22/2024 3:34 PM LEAD PRINTER Assessment Noted Time PHQ-9 Depression Total Score: 2 09/11/19 21 11:00 AM CDT documented as of this encounter Care Teams Cigar Head Stringer Relationship Specialty Start Date End Date Cosmo Jimenez, PAC [address] [place] [address] PCP - General Physician Senior Linux Administrator 04/04/23 Mackenzie Reyna, [facility] [address] [place] [address] Physician Senior Linux Administrator Physician Senior Linux Administrator 09/08/20 documented as of this encounter
--- OUTSIDE RECORDS SUMMARY | 2024-07-28 17:17 | XMS_ITS | Encounter Summary ---
Author Organization [facility] Address [address] [place] [address] Phone Care Team Providers Care Financial Compliance Manager Name Role Phone Mackenzie Reyna Marie PAC Unavailable [phone] Cosmo Jimenez PAC Primary Care Provider [phone] Reason for Visit * Reason Onset Date Comments Cough 07/28/2024 Shortness of Breath 07/28/2024 Encounter Details Date Type Department Care Team (Late st Contact Info) Description 07/28/2024 Nurse Triage [facility] [address] [place] [address] Cosmo Jimenez, PAC [address] [place] [address] Cough; Shortness of Breath Social History Tobacco Use Types Packs/Day Years Used Date Smoking Tobacco: Former Cigarettes 0.5 23.9 S tarted: 09/10/2000 Smokeless Tobacco: Never Alcohol Use Standard Drinks/Week Comments Yes 1 (1 standard drink = 0.6 oz pur e alcohol) socially [facility] Utilities Answer Date Recorded In the past 12 months has [email or web address], gas, oil, or water company threatened to [...] declined 08/16/2023 How often do you attend rastafarian or lutheran serv ices? Patient declined 08/16/2023 Active Member [...] Total Score - Questions 1-9 2 08/17 [facility] of Occupat ional Health - Occupational Stress Questionnaire Answer Date Recorded [...] to sleep or slept in a senior living (including now)? No 08/16/2023 Comments No Sex and Gender Information Value Date Recorded Sex Assigned at Not on file Legal Sex Female 9:55 PM CDT Gender Identity Not on file Sexual Orientation Not on file documented as of this encounter Miscellaneous Notes * Telephone Encounter - Elsa Eagle RN - 07/28/2024 4:25 PM CAKE WASHER SITUATION: patient calling BACKGROUND: regarding contacting PCP office. History of asthma and smoker Per chart review, 06/05/24 last office visit ASSESSMENT: Symptom Description / Location: Symptoms for 3 days. Weakness, cough, shortness of breath with activity, fever Pain: Would not rate Fever: Last temperature: 99.1 at just before call. Got up to 102.6. Treatment / Response: cold and flu with some relief. RECOMMENDATION: Caller agreeable to disposition: go to office now. No appointment available today. Advised prompt care. Patient will go Discussed utilizing [employer] to: send messages to providers - See care advice and disposition for Guideline. First positive answer recorded, all responses to prior questions were negative. If symptoms increase, change or if new symptoms develop, call your health care provider or call back. Recommendations were based on caller information and is not a diagnosis. Verified and reviewed all triage information with caller. Reason for Disposition MILD difficulty breathing (e.g., minimal/no SOB at rest, SOB with walking, pulse <100) and stillpresent when not coughing MILD difficulty breathing (e.g., minimal/no SOB at rest, SOB with walking, pulse < 100) of new-onset or worse than normal Protocols used: Cough-A-OH, Breathing Aiislvomgm-Y-VI WASHER * Telephone Encounter - Jocelin Real - 07/28/2024 4:24 PM CST Symptoms: Cough, Fever, Breathing Trouble, Body Aches, Headache Outcome: Transfer to construction carpenters helper queue Reason: Caller denied all higher acuity questions The caller accepted this outcome. Caller Denied: * Bluish color of lips or face now * Choked on something * Can't stand (unless normally can't stand) * Acting confused * Age less than 1 year old * Uses oxygen * Sudden worst headache of life now * Trouble breathing through the mouth * Trouble walking WASHER documented in this encounter Plan of Treatment Upcoming Encounters Date Type Department Care Team (Late st Contact Info) Description 08/08/2024 8:10 AM CAKE WASHER Lab [facility] [place] [address] [facility] 08/15/2024 10:30 AM CAKE WASHER Office Visit [facility] [place] [address] [place] [phone] Cosmo Jimenez PAC [address] [place] [id number] documented as of this encounter Visit Diagnoses Not on filedocumented in this encounter Additional Health Concerns Assessment Noted Time PHQ-9 Depression Total Score: 2 09/11/19 21 11:00 AM CDT documented as of this encounter Care Teams Financial Compliance Manager Relationship Specialty Start Date End Date Cosmo Jimenez PAC [address] [place] [address] PCP - General Physician Smoke Jumper Supervisor 04/04/23 Mackenzie Reyna, [facility] [address] [place] [address] Physician Smoke Jumper Supervisor Physician Smoke Jumper Supervisor 09/08/20 documented as of this encounter
--- OUTSIDE RECORDS SUMMARY | 2024-07-28 17:17 | XMS_ITS | Encounter Summary ---
Author Organization [facility] Address [address] [place] [address] Phone Care Team Providers Care Security Systems Sales Representative Name Role Phone Mackenzie Reyna PAC Unavailable [phone] Cosmo Jimenez PAC Primary Care Provider [phone] Reason for Visit * Reason Comments Medication Refill Encounter Details Date Type Department Care Team (Late st Contact Info) Description 02/11/2023 Refill [facility] - Primary Care - [place] [address] [place] [address] Jolie Ross, SLITTING MACHINE OPERATOR, CRAYON SORTING MACHINE FEEDER [address] [place] [address] Medication Refill Social History Tobacco [...] Telephone Encounter - Audelia Cedeno RN - 02/12/2023 11:12 AM CDT Patient has not set up KASIA appt from documented in this encounter Plan of Treatment Upcoming Encounters Date Type Department Care Team (Late st Contact Info) Description 08/08/2024 8:10 AM CRM SYSTEM ADMINISTRATOR Lab [facility] [address] [place] [address] [facility] 08/15/2024 10:30 AM CRM SYSTEM ADMINISTRATOR Office Visit [facility] [address] [place] [address] Cosmo Jimenez PAC [address] [place] [address] documented as of this encounter Visit Diagnoses Diagnosis Essential hypertension Unspecified essential hypertension documented in this encounter Additional Health Concerns Infection Onset Date Last Indicated Resolved Time COVID - 19 05/22/2024 05/22/2024 05/22/2024 3:34 PM CRM SYSTEM ADMINISTRATOR Assessment Noted Time PHQ-9 Depression Total Score: 2 09/11/19 21 11:00 AM CDT documented as of this encounter Care Teams Security Systems Sales Representative Relationship Specialty Start Date End Date Cosmo Jimenez PAC [address] [place] [address] PCP - General Physician Scientific Software Developer 04/04/23 Mackenzie Reyna PAC [address] [place] [address] Physician Scientific Software Developer Physician Scientific Software Developer 09/08/20 documented as of this encounter
--- OUTSIDE RECORDS SUMMARY | 2024-07-28 17:17 | XMS_ITS | Encounter Summary ---
Author Organization [facility] Address [address] [place] [address] Phone Care Team Providers Care Ent Consultant Name Role Phone Mackenzie Reyna Marie PAC Unavailable [phone] Cosmo Jimenez PAC Primary Care Provider [phone] Encounter Details Date Type Department Care Team (Late st Contact Info) Description 06/15/2024 Results Follow-Up [facility] - Primary Care - [place] [address] [place] [address] Cosmo Jimenez, PAC [address] [place] [address] Social History Tobacco Use Types Packs/Day Years Used Date Smoking Tobacco: Former Cigarettes 0.5 23.9 S tarted: 09/10/2000 Smokeless Tobacco: Never Alcohol Use Standard Drinks/Week Comments Yes 1 (1 standard drink = 0.6 oz pur e alcohol) socially C Utilities Answer Date Recorded In the past 12 months has [employer], gas, oil, or water company threatened [...] declined 08/16/2023 How often do you attend voodoo or christianity serv ices? Patient declined 08/16/2023 Active Member [...] Total Score - Questions 1-9 2 08/17 [facility] of Occupat ional Health - Occupational Stress [...] place to sleep or slept in a [facility] (including now)? No 08/16/2023 Comments No Sex and Gender Information Value Date Recorded Sex Assigned at Not on file Legal Sex Female 9:55 PM CDT Gender Identity Not on file Sexual Orientation Not on file documented as of this encounter Plan of Treatment Upcoming Encounters Date Type Department Care Team (Late st Contact Info) Description 08/08/2024 8:10 AM PASTE WORKER Lab [facility] [place] [address] [place] [address] [facility] 08/15/2024 10:30 AM PASTE WORKER Office Visit [facility] [place] [address] [place] [address] Cosmo Jimenez PAC [address] [place] [address] documented as of this encounter Visit Diagnoses Not on filedocumented in this encounter Additional Health Concerns Assessment Noted Time PHQ-9 Depression Total Score: 2 09/11/19 21 11:00 AM CDT documented as of this encounter Care Teams Ent Consultant Relationship Specialty Start Date End Date Cosmo Jimenez PAC [address] [place] [address] PCP - General Physician Pie Bottomer 04/04/23 Mackenzie Reyna, [address] [place] [address] Physician Pie Bottomer Physician Pie Bottomer 09/08/20 documented as of this encounter
[2024-07-28 17:30] VITALS: BP 208/91; PULSE 120; RESP 16; TEMP 36.7; O2SAT 100
--- NOTE | 2024-07-28 17:53 | ED_ITS ---
HPI - URI/Sore Throat General Chief Complaint: Upper Respiratory Infection Stated Complaint: sob/head and body aches Time Seen by Provider: 07/28/24 17:54 Source: patient Mode of arrival: ambulatory Limitations: no limitations History of Present Illness HPI Narrative: 39-year-old female presented complaint of cough 3 days. Started with body aches, headache, and fever to 102.5. Endorses shortness exertion and decreased appetite. Taking [place] cold & flu for symptoms. Has not taken Blood pressure medicine today. Denies nausea vomiting, diarrhea or lethargy. Related Data Home Medications ?Medication ?Instructions ?Recorded ?Confirmed ?Last Taken ?Type albuterol sulfate 90 mcg/actuation inhalation 01/30/24 Unknown History aerosol inhaler bupropion HCl 150 mg 24 hr tablet, 150 mg PO DAILY 01/30/24 01/30/24 Unknown History extended release hydroxyzine HCl 50 mg tablet 50 mg PO TID Anxiety 01/30/24 01/30/24 Unknown History metoprolol succinate 50 mg 50 mg PO 01/30/24 Unknown History tablet,extended release 24 hr prazosin 2 mg capsule 2 mg PO BID PRN Anxiety 01/30/24 01/30/24 Unknown History Allergies Allergy/AdvReac Type Severity Reaction Status Date / Time No Known Allergies Allergy Unverified 01/04/19 14:51 Review of Systems Review of Systems: per HPI All systems reviewed & are unremarkable except as noted in HPI and below PMFSH Past Medical History Medical History (Updated 07/29/24 @ 00:00 by Javier Poole) Asthma Nightmares Hypertension Anxiety and depression Surgical History Surgical History (Updated 02/01/24 @ 15:33 by Audelia Osullivan NP) Previous section x4 Social History Social History (Updated 02/01/24 @ 15:38 by Audelia Osullivan NP) Smoking packs per day: 0.5 Smoking cigarettes per day: 10.0 Years smoked: 20 Smoking pack-years: 10.00 Smoking status: Former smoker Tobacco type: cigarettes Additional smoking assessment comments: quit 8 months ago Alcohol intake: current Alcohol use details: rare social Substance use type: does not use Living arrangements: with family Gender identity (if verbalized by the patient): Female Comments At time of signature, I have reviewed and agree with nursing past medical, surgical, social and family history unless otherwise noted. Please see nursing chart for further information. There is no relevant family history pertinent to the presenting complaint Exam Narrative: GENERAL: mildly ill-appearing, in no acute distress. EYES: EOMI. No redness or drainage. Conjunctivae normal. ENT: Mucous membranes pink and moist. No rhinorrhea. TMs normal bilaterally. Throat normal. Uvula midline. NECK: Normal AROM. Supple. CHEST: No respiratory distress. lungs clear to all anand. HEART: Regular rate and rhythm. No murmur appreciated. SKIN: Warm, dry, no rash. Capillary refill normal. Normal skin turgor. NEURO: Alert and oriented x3. Gait steady. Course Course Emergency Course: Patient is aware of diagnosis, understands and agrees to treatment plan. Anticipatory guidance given. Patient agrees to follow-up as directed and is aware of reasons to seek care at the emergency department. Portions of this record may have been created with voice recognition software Level of Care: Express Care Visit Vital Signs Vital signs: Vital Signs Temperature 98.1 F 07/28/24 17:30 Pulse Rate 120 H 07/28/24 17:30 Respiratory Rate 16 07/28/24 17:30 Blood Pressure 208/91 H 07/28/24 17:30 Pulse Oximetry 100 07/28/24 17:30 Oxygen Delivery Room Air 07/28/24 17:30 Temperature 98.1 F 07/28/24 17:30 Pulse Rate 120 H 07/28/24 17:30 Respiratory Rate 16 07/28/24 17:30 Blood Pressure 140/84 07/28/24 18:22 Pulse Oximetry 100 07/28/24 17:30 Oxygen Delivery Room Air 07/28/24 17:30 MDM - URI/Sore Throat MDM Narrative Medical decision making narrative: Negative flu, COVID, Discussed physical exam findings. has not taken BP meds yet today. Advised elevated blood pressure reading and she will take medicine when she gets home. BP improved on recheck. Advised supportive measures and signs/symptoms to go to the ER. Pt is appropriate for outpt treatment and f/u. Differential Diagnosis Differential diagnosis: Likely upper respiratory infection, sinusitis, viral infection, bronchitis, influenza and pharyngitis Lab Data Labs: Lab Results 07/28/24 Range/Units 18:22 POC Influenza A Ag Negative (Negative) POC Influenza B Ag Negative (Negative) POC SARS CoV-2 Ag Negative (Negative) Discharge Plan Discharge Clinical Impression: Bronchitis Patient Disposition: Home, Self-Care Condition: Stable Instructions: Antibiotic Form, Acute Bronchitis (ED) Additional Instructions: Your blood pressure reading was elevated (above 120/80) please follow-up with your primary care provider for further evaluation and management. If you develop worsening Blood Pressure symptoms, (headache, vision changes, dizziness, vomiting, chest pain, etc) go to the ER. Call 911. Take your blood pressure medicine when you get home flu and COVID negative today. You should avoid crowds until you are fever free for 24 hours without the use of fever reducing medications, or the symptoms are improved Rest. Drink plenty of fluids. Tylenol 1000mg every 8 hours as needed for pain/fever flonase spray and Zyrtec (or Claritin/Carissa) for sinus pressure/congestion prescriptions Cough syrup may cause drowsiness; avoid driving or take it at night time. it has a narcotic component which may be be addictive, take only as directed Follow up with your primary care provider as needed Go to the ER for worsening symptoms or concerns Patient Language: Albanian Prescriptions: New benzonatate 200 mg capsule 200 mg PO TID PRN (Reason: cough) Qty: 20 0RF albuterol sulfate 90 mcg/actuation HFA aerosol inhaler 2 inh inhalation QID PRN (Reason: shortness of breath or wheezing) Qty: 8.5 0RF prednisone 50 mg tablet 50 mg PO DAILY Qty: 5 0RF codeine-guaifenesin [Guaifenesin AC] 10-100 mg/5 mL liquid 10 ml PO Q8H PRN (Reason: cough) Qty: 120 0RF No Action metoprolol succinate 50 mg tablet extended release 24 hr 50 mg PO hydroxyzine HCl 50 mg tablet 50 mg PO TID albuterol sulfate 90 mcg/actuation HFA aerosol inhaler INHALATION bupropion HCl 150 mg tablet extended release 24 hr 150 mg PO DAILY prazosin 2 mg Capsule 2 mg PO BID PRN (Reason: Anxiety) ondansetron 4 mg tablet,disintegrating 4 mg PO Q6H PRN (Reason: nausea and vomiting) Qty: 20 0RF Follow-up/Referrals: PHYSICIAN NOT ON STAFF,NONSTAFF [Primary Care Provider] - Stand Alone Forms: Work/School Release IP Time of Disposition: 18:06
[2024-07-28 18:22] VITALS: BP 140/84
[2024-07-28 18:24] LABS: EDCOVIDSCREEN Negative (Negative); EDINFLUASCREEN Negative (Negative); EDINFLUBSCREEN Negative (Negative)
== END 2024-07-28 18:17 | disposition home or self-care (01) ==
PROVIDERS: Emergency Provider Nurse Practitioner Family
DX: J40 Bronchitis, not specified as acute or chronic (principal); Z20.822 Contact with and (suspected) exposure to COVID-19; I10 Essential (primary) hypertension; J45.909 Unspecified asthma, uncomplicated; F41.9 Anxiety disorder, unspecified; F32.A Depression, unspecified; Z87.891 Personal history of nicotine dependence
CPT/HCPCS: 87426; 87804; 99213; G0463